=== PATIENT | female | born 1985 | race Caucasian/White ===

== ENCOUNTER 2024-02-29 07:20 | Outpatient (AMB) | payer OTHER, SELFPAY ==
[2024-02-29 07:43] VITALS: BP 120/80; PULSE 91; O2SAT 100; BMI 37.7
--- NOTE | 2024-02-29 07:43 | MHC.PC.OV ---
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 ciprofloxacin Adverse Reaction (Verified 02/29/24 07:45) hives environmental allergies Adverse Reaction (Verified 02/29/24 07:45) Sneezing Medication List - Last Reconciled 02/29/24 by Ami Osorio MD cholecalciferol (vitamin D3) 50 mcg PO DAILY levothyroxine 125 mcg PO DAILY loratadine (Claritin) 10 mg PO DAILY loteprednol etabonate 0.5% 1 drp ophthalmic-Left QID 14 days metoprolol succinate ER 25 mg PO DAILY vitamin B complex 1 tab PO DAILY Tobacco use date assessed: 02/29/24 Dental Screening Dental Screen Date: 02/29/24 Did you have a dental visit in the last 12 months?: Yes Did you have a dental problem in the last 6 months where you did not have access to dental care?: Yes Was dental information given to patient?: Patient has dentist 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 Pt moved from [place] 1 year ago. 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 1. Little interest or pleasure in doing things: not at all 2. Feeling down, depressed, or hopeless: not at all 3. Trouble falling or staying asleep, or sleeping too much: not at all 4. Feeling tired or having little energy: not at all 5. Poor appetite or overeating: not at all 6. Feeling bad about yourself - or that you are a failure or have let yourself or your family down: not at all 7. Trouble concentrating on things, such as reading the newspaper or watching television: not at all 8. Moving or speaking so slowly that other people could have noticed. Or the opposite - being so fidgety or restless that you have been moving around a lot more than usual: not at all 9. Thoughts that you would be better off or of hurting yourself in some way: not at all Total score: 0 Depression Screening Interpretation: Negative Depression Screening Done: Yes 68930 - PHQ-9 Billing: Yes Source: Developed by Drs. Isai Cornelius, Giselle Tate, Johnson Lee and colleagues, with an educational julisa from [employer]. Thrive Questionnaire Date Thrive assessed: 02/29/24 I am a: Patient What is your living situation today?: I have a steady place to live Within the past 12 months, did the food you bought not last and you didn't have the money to get more?: Never true Within the past 12 months, did you worry whether your food would run out before you got money to buy more?: Never true Do you have trouble paying for medicines?: No Do you have trouble getting transportation to medical appointments?: No Do you have trouble paying your heating and electricity bill?: No Do you have trouble taking care of your child, family member or friend?: No Do you have trouble with day-to-day activities such as bathing, preparing meals, shopping, managing finances, etc.?: No Are you currently unemployed and looking for a job?: No Are you interested in more education?: No Please select the resources that you would like help with: None Currently or been in a relationship where the following occur: No concerns reported THRIVE Score: 0 AUDIT C Alcohol Use Questionnaire (AUDIT-C) 1. How often do you have a drink containing alcohol?: Monthly or less 2. How many drinks containing alcohol do you have on a typical day when you are drinking?: 1 or 2 3. How often do you have six or more drinks on one occasion?: Never Total Score: 1 RUTH-7 AMB Questionnaire RUTH-7 Date RUTH - 7 assessed: 02/29/24 Feeling nervous, anxious, or on edge: 0 = Not at all Not being able to stop or control worryin = Not at all Worrying too much about different things: 0 = Not at all Trouble relaxin = Not at all Being so restless that it is hard to sit still: 0 = Not at all Becoming easily annoyed or irritable: 0 = Not at all Feeling afraid as if something awful might happen: 0 = Not at all Total RUTH-7 score (0-4 normal; 5-9 mild; 10-14 moderate; 15-21 severe): 0 Source: Developed by Drs. Isai Cornelius, Giselle Tate, Johnson Lee and colleagues, with an educational julisa from [employer]. Review of Systems Const All systems reviewed & are unremarkable except as noted in HPI and below Reports no additional complaints Eyes Reports no additional complaints ENT Reports no additional complaints Card Reports no additional complaints Resp Reports no additional complaints GI Reports no additional complaints Reports no additional complaints Physical exam (Primary Care) Vital Signs: Last Vital Signs Pulse 91 02/29/24 07:43 BP 142/108 H 02/29/24 07:43 Pulse Ox 100 02/29/24 07:43 Oxygen Delivery Method Room Air 02/29/24 07:43 BMI result Body Mass Index 37.7 Tobacco/Smoking Status: Tobacco use Status Tobacco use date assessed 02/29/24 02/29/24 07:53 Patient Tobacco Use Status Never used Tobacco 02/29/24 08:17 e-Cigarette/Vaping Use Never Used 02/29/24 08:17 PHQ-9: PHQ-9 Score PHQ-9: Total score 0 02/29/24 08:28 Depression Screening Interpretation: Negative Thrive Assessment: Date of Thrive Assessment Date Thrive assessed 02/29/24 02/29/24 07:53 Currently or been in a relationship where the following occur: No concerns reported Const General: no acute distress HENMT Head: Yes normal to inspection Ears: hearing grossly normal bilaterally General nose exam: Normal external nose present Face and sinus: Yes normal facial exam Mouth: Normal oral and palatal mucosa present Throat: Yes posterior oropharynx normal Eyes General: appearance normal, both eyes and all related structures Neck Neck: Yes no lymphadenopathy and Yes supple Resp Effort & Inspection: normal respiratory effort Auscultation: clear to auscultation bilaterally Cardio Rhythm: regular rhythm Heart sounds: S1 normal heart sound present and S2 normal heart sound present GI Inspection: Yes normal to inspection Palpation (GI): Soft to palpation Percussion: Yes normal to percussion Auscultation: normal bowel sounds Coding Level of Care Code New Pt Prev Care 18-39yr(99783 Diagnoses Hypothyroid E03.9 Annual physical exam Z00.00 HTN (hypertension) I10 Additional Codes PHQ-9 - 22281 - PHQ-9 Billing: Yes ([id number]) Assessment & Plan Assessment & Plan (1) Hypothyroid: Code(s): E03.9 - Hypothyroidism, unspecified Category: Medical Plan: Continue levothyroxine check blood work today including TSH (2) Annual physical exam: Code(s): Z00.00 - Encounter for general adult medical examination without abnormal findings Category: Medical Plan: Well-balanced diet regular physical activity discussed with the patient. 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 (3) HTN (hypertension): Code(s): I10 - Essential (primary) hypertension Category: Medical Plan: Continue metoprolol follow-up in 6 months Orders: Orders US thyroid Today E03.9 - Hypothyroidism, unspecified TSH reflex Free T4 Today E03.9 - Hypothyroidism, unspecified, E55.9 - Vitamin D deficiency, unspecified, I10 - Essential (primary) hypertension, Z00.00 - Encounter for general adult medical examination without abnormal findings Lipid Panel Today E03.9 - Hypothyroidism, unspecified, E55.9 - Vitamin D deficiency, unspecified, I10 - Essential (primary) hypertension, Z00.00 - Encounter for general adult medical examination without abnormal findings Comprehensive [place]. Panel Fast Today E03.9 - Hypothyroidism, unspecified, E55.9 - Vitamin D deficiency, unspecified, I10 - Essential (primary) hypertension, Z00.00 - Encounter for general adult medical examination without abnormal findings Vitamin D 25-OH Total Today E03.9 - Hypothyroidism, unspecified, E55.9 - Vitamin D deficiency, unspecified, I10 - Essential (primary) hypertension, Z00.00 - Encounter for general adult medical examination without abnormal findings Vitamin B12 and Folate Today E03.9 - Hypothyroidism, unspecified, E55.9 - Vitamin D deficiency, unspecified, I10 - Essential (primary) hypertension, Z00.00 - Encounter for general adult medical examination without abnormal findings Complete Blood Count Auto Diff Today E03.9 - Hypothyroidism, unspecified, E55.9 - Vitamin D deficiency, unspecified, I10 - Essential (primary) hypertension, Z00.00 - Encounter for general adult medical examination without abnormal findings UA w Microscopic Today E03.9 - Hypothyroidism, unspecified, E55.9 - Vitamin D deficiency, unspecified, I10 - Essential (primary) hypertension, Z00.00 - Encounter for general adult medical examination without abnormal findings Medications: New loteprednol etabonate 0.5% start 24 hours after surgery 1 drp ophthalmic-Left QID 14 days 5 grams 1RF levothyroxine 125 mcg PO DAILY 90 caps 0RF metoprolol succinate ER 25 mg PO DAILY 90 tabs 0RF loteprednol etabonate 0.5% 1 drp ophthalmic (eye) .qd 5 grams 1RF olopatadine 0.1% separate doses by at least 6-8 hours 1 drp ophthalmic (eye) BID 5 mL 1RF
== END 2024-02-29 10:37 | disposition home or self-care (01) ==
PROVIDERS: PCP Internal Medicine; Visit Provider Internal Medicine
DX: E03.9 Hypothyroidism, unspecified (principal); Z00.00 Encounter for general adult medical examination without abnormal findings; I10 Essential (primary) hypertension

== ENCOUNTER 2024-02-29 07:20 | Outpatient (REF) | payer OTHER, SELFPAY ==
[2024-02-29 10:04] LABS: MANUAL DIFF FLAG NO
[2024-02-29 10:09] LABS: Basophils Absolute Auto 0.1 X10*3/uL (0.0-0.2); Basophils Percent Auto 0.6 % (0-2); Eosinophils Absolute Auto 0.2 X10*3/uL (0.0-0.4); Hematocrit 40.1 % (37.0-47.0); Hemoglobin 13.2 g/dl (12.0-16.0); Imm Gran Abs Auto 0.04 X10*3/uL (0.00-0.03); Imm Gran Pct Auto 0.5 % (0.0-0.4); Lymphocytes Absolute Auto 1.4 X10*3/uL (1.2-4.9); Lymphocytes Percent Auto 17.5 % (20-40); Mean Corpuscular HGB Conc 32.9 g/dl (31.0-35.0); Mean Corpuscular Volume 85.1 fL (80.0-98.0); Mean Platelet Volume 10.4 fL (9.4-12.3); Monocytes Absolute Auto 0.4 X10*3/uL (0.1-1.2); Monocytes Percent Auto 5.3 % (2-11); Neutrophils Absolute Auto 5.9 x10*3/uL (2.0-8.3); Neutrophils Percent Auto 74.1 % (45-73); Platelet Count 341 X10*3/uL (160-400); Red Blood Count 4.71 X10*6/uL (4.20-5.50); Red Cell Distribution Width 13.5 % (11.0-16.0); White Blood Count 7.9 X10*3/uL (4.8-10.8)
[2024-02-29 10:15] LABS: Appearance Urine Clear; Color Urine Yellow; Glucose Urine UA Negative (Negative); Leukocyte Esterase Urine Negative (Negative); Nitrite Urine Negative (Negative); Specific Gravity - Urine <= 1.005 (1.005-1.025); Urine Blood Negative (Negative); Urine Ketones Negative (Negative); Urine Protein Negative (Neg-Trace)
[2024-02-29 10:23] LABS: Bacteria Urine None Seen (None Seen); Hyaline Casts Urine 0-2 /LPF (0-2); RBC Urine 0-2 /HPF (0-2); Squamous Epithelial Cell Urine 0-2 /HPF (0-2); WBC Urine 0-5 /HPF (0-5)
[2024-02-29 11:07] LABS: Albumin Level 4.2 g/dL (3.5-5.0); Alkaline Phosphatase 64 U/L (39-117); Anion Gap 12 (12-20); Aspartate Amino Transferase 29 U/L (5-31); Bilirubin Total 0.4 mg/dL (0.0-1.0); Blood Urea Nitrogen 12 mg/dL (9-16); Calcium 9.2 mg/dL (8.4-10.2); Carbon Dioxide 28 mmol/L (22-29); Chloride 105 mmol/L (96-108); Cholesterol 161 mg/dL (<200); Estimated Glomerular Filt Rate > 60; Glucose Fasting 96 mg/dL (60-99); HDL Cholesterol 42 mg/dL (>40); LDL Cholesterol Calculated 102 mg/dL (<100); Potassium 4.6 mmol/L (3.3-5.1); Sodium 140 mmol/L (135-145); Total Protein 7.6 g/dL (6.5-8.0); Triglycerides 88 mg/dL (<150)
[2024-02-29 11:12] LABS: Folate 8.1 ng/mL (> or = 4.0); Vitamin B12 832 pg/mL (200-900)
[2024-02-29 11:14] LABS: TSH reflex Free T4 3.44 uIU/mL (0.32-4.0); Vitamin D 25-OH Total 65.5 ng/mL (>30)
[2024-02-29 11:27] LABS: Alanine Aminotransferase 30 U/L (0-31)
== END 2024-02-29 07:21 | disposition home or self-care (01) ==
LOC: HO.HMGCLDS 07:20
PROVIDERS: PCP Internal Medicine; Visit Provider Internal Medicine
DX: Z00.00 Encounter for general adult medical examination without abnormal findings (principal); I10 Essential (primary) hypertension; E03.9 Hypothyroidism, unspecified; E55.9 Vitamin D deficiency, unspecified
CPT/HCPCS: 36415; 80053; 80061; 81001; 82306; 82607; 82746; 84443; 85025; 96127

== ENCOUNTER 2024-03-25 15:22 | Outpatient (REF) | payer OTHER, SELFPAY ==
--- NOTE | ~2024-03-25 | US_ITS ---
EXAMINATION: US THYROID CLINICAL INFORMATION: Hypothyroidism, unspecified. COMPARISON: None available. TECHNIQUE: Linear transducer grayscale and color Doppler examination with attention to the region of the thyroid. FINDINGS: SIZE: Measurements of the thyroid lobes and nodules are given in sagittal, anteroposterior and transverse dimensions respectively. Right Thyroid Lobe: 5.6 x 1.8 x 2.2 cm, volume 11.6 mL. Parenchyma: The gland echotexture is heterogeneous. Thyroid vascularity is slightly increased. Left Thyroid Lobe: 4.8 x 2.1 x 2.0 cm, volume 10.6 mL. Parenchyma: The gland echotexture is heterogeneous. Thyroid vascularity is slightly increased. Isthmus: 0.5 cm in maximum AP dimension. No focal thyroid nodule is seen. NODES: There is a solitary prominent lymph node level 2 left neck measuring 3.3 x 1.1 x 2.0 cm US/US thyroid IMPRESSION: Unremarkable Panorex ultrasound with no nodules visualized. Abnormal dumbbell shaped left neck level 2 lymph node. No increased vascularity. Recommend follow-up lymph node in 6-12 months ACR TI-RADS RECOMMENDATION REFERENCE: Ultrasound-guided fine-needle aspiration, followup ultrasound, no further follow up. * TR1 (0 point) and TR2 (2 points): No FNA or follow up. * TR3 (3 points): FNA if more than or equal to 2.5 cm in maximum dimension, followup ultrasound in 1, 3 and 5 years if 1.5 to 2.4 cm in maximum dimension. * TR4 (4-6 points): FNA if more than or equal to 1.5 cm in maximum dimension, followup ultrasound in 1, 2, 3 and 5 years if 1 to 1.4 cm in maximum dimension. * TR5 (more than or equal to 7 points): FNA if more than or equal to 1 cm in maximum dimension, followup ultrasound every year for 5 years if 0.5 to 0.9 cm in maximum dimension. * TR3, TR4 or TR5 nodules that are below the size threshold for followup receive no follow up. Electronically signed by: Clarence May MD 04/11/2024 05:49 PM [facility]
== END 2024-03-25 15:23 | disposition home or self-care (01) ==
LOC: HO.HMGCX 15:22
PROVIDERS: PCP Internal Medicine; Visit Provider Internal Medicine
DX: E03.9 Hypothyroidism, unspecified (principal)
CPT/HCPCS: 76536

== ENCOUNTER → 2024-03-25 15:24 | Outpatient (BNV) | payer OTHER, SELFPAY | PROVIDERS: PCP Internal Medicine; Visit Provider Radiology Diagnostic Radiology | DX: R59.9 Enlarged lymph nodes, unspecified (principal) | CPT/HCPCS: 76536 ==

== ENCOUNTER 2024-10-08 15:31 | Outpatient (REF) | payer OTHER, SELFPAY ==
--- NOTE | ~2024-10-08 | US_ITS ---
EXAMINATION: US THYROID CLINICAL INFORMATION: Cervical lymphadenopathy, follow-up abnormal left level 2 lymph node from thyroid ultrasound 03/25/2024.. COMPARISON: Thyroid ultrasound 03/25/2024. TECHNIQUE: Linear transducer moore-scale and color Doppler examination with attention to the cervical lymph nodes. FINDINGS: There is a slightly smaller left level 2 lymph node measuring 3.3 x 1.0 x 1.4 cm, previously measuring 3.3 x 1.1 x 2.0 cm. It again demonstrates a slitlike fatty hilum, lobular mildly thickened cortex, but normal vascularity. There remains indeterminate. No additional abnormal lymph nodes are noted on either side. US/US soft tiss head and/or neck IMPRESSION: Slightly smaller left level 2 lymph node measuring 3.3 x 1.0 x 1.4 cm as detailed. This remains indeterminate although stability over time suggests reactive etiology. Electronically signed by: Herber Lanier MD 10/08/2024 03:57 PM EDT
--- OUTSIDE RECORDS SUMMARY | 2024-10-08 18:20 | XMS_ITS | Clinical Summary ---
Author Organization [facility] [employer] [facility] lin Address [address] [place] [address] Care Team Providers Care Acupressurist Name Role Phone Pcp, No Primary Care Provider [phone] Social History Tobacco Use Types Packs/Day Years Used Date Smoking Tobacco: Never Assessed Comments Unknown Sex and Gender Information Value Date Recorded Sex Assigned at Not on file Legal Sex Female 8:20 PM EDT Gender Identity Not on file Sexual Orientation Not on file Plan of Treatment Health Maintenance Due Date Last Done Comments Depression: Screening Annual ly using PHQ-2/9 in Adults 18 yrs or above (or HM Modifier)([facility]) 2002 Hepatitis C Virus Infection in Adolescents and Adults: Screening (or Modifier) ([facility]) 2002 SDFL Screening Reminder: Norma infante for all adults ([facility]) 2002 Tobacco Smoking Cessation: i n Adults excluding Women: Behavioral and Pharmacotherapy Interventions ([facility]) 2002 DTaP/Tdap/Td Vaccines ([facility]) (1 - Tdap) 10/16/2003 Cervical Cancer Screenin 1-65 yrs of age (or Modifier) 2005 Cervical Cancer Screening: P ap every 3 yrs pts age 21-65 2005 Cervical Cancer: Pap Screeni ng with Modifier timing ([facility]) 2005 Cervical Cancer: hrHPV alone or with cotesting Pap for Pts 30-65yrs screening every 5yrs ([facility]) 2005 COVID-19 Vaccine Screening: Initial Series and Booster Status ([facility]) ( - 2023- season) 2023 Flu Vaccination: Yearly for ages 18mos through 64 years (or Modifier)([facility]) 11/14/2024 Zoster/Shingles Vaccine Seri es Screening: Adults aged 18+ yrs (or HM Modifiers)([facility]) (1 of 2) 2034 Pneumococcal Vaccination Scr eening: Pts 0-19 & 19-49 yrs of age ([facility]) Aged Out No longer eligible based on patient's age to complete this topic Medical Devices Not on file Insurance Care Teams Acupressurist Relationship Specialty Start Date End Date Pcp, Cata PCP - General Family Medicine 01/01/21
== END 2024-10-08 15:32 | disposition home or self-care (01) ==
LOC: HO.HMGCX 15:31
PROVIDERS: PCP Internal Medicine; Visit Provider Internal Medicine
DX: R59.0 Localized enlarged lymph nodes (principal)
CPT/HCPCS: 76536

== ENCOUNTER → 2024-10-08 15:32 | Outpatient (BNV) | payer OTHER, SELFPAY | PROVIDERS: PCP Internal Medicine; Visit Provider Radiology Diagnostic Radiology | DX: R59.9 Enlarged lymph nodes, unspecified (principal) | CPT/HCPCS: 76536 ==

== ENCOUNTER 2025-02-05 11:11 | Outpatient (AMB) | payer OTHER, SELFPAY ==
[2025-02-05 11:13] VITALS: BP 128/84; PULSE 81; RESP 18; TEMP 36.7; O2SAT 9; BMI 36.0
--- NOTE | 2025-02-05 11:13 | A.OFFPC_ITS ---
Vital Signs 02/05/25 11:13 Height 5 ft 9 in Weight 244 lb BMI 36.0 BP 128/84 Blood Pressure Location Lt brachial Position Sitting Respiration 18 Pulse 81 Pulse Source Pulse Oximeter Temp 98.1 F Temp Source Oral Pulse Oximetry (%) 9 L Oxygen Delivery Method Room Air Intake Visit Reasons: Meds review Intake Note: Pt is here today for a follow up visit. Allergies ciprofloxacin Adverse Reaction (Verified 02/05/25 11:24) hives environmental allergies Adverse Reaction (Verified 02/05/25 11:24) Sneezing Tobacco use date assessed: 02/05/25 Dental Screening Dental Screen Date: 02/05/25 Did you have a dental visit in the last 12 months?: Yes Did you have a dental problem in the last 6 months where you did not have access to dental care?: No Was dental information given to patient?: Patient has dentist HPI Meds review HPI Details Patient presents for the follow-up on hypothyroidism and hypertension controlled on current medications [facility] Medical History (Updated 02/05/25 @ 15:04 by Ami Osorio MD) Cervical lymphadenopathy Normal pelvic exam Vitamin B 12 deficiency Vitamin D deficiency Hypothyroid HTN (hypertension) Surgical History (Updated 02/05/25 @ 11:27 by Lin Mccormack [facility]) Hx of cholecystectomy Family History (Updated 02/29/24 @ 08:16 by Ami Osorio MD) Father HTN (hypertension) Leukemia Mother Breast CA Social History (Updated 02/29/24 @ 08:17 by Ami Osorio MD) 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 1. Little interest or pleasure in doing things: not at all 2. Feeling down, depressed, or hopeless: not at all 3. Trouble falling or staying asleep, or sleeping too much: not at all 4. Feeling tired or having little energy: not at all 5. Poor appetite or overeating: not at all 6. Feeling bad about yourself - or that you are a failure or have let yourself or your family down: not at all 7. Trouble concentrating on things, such as reading the newspaper or watching television: not at all 8. Moving or speaking so slowly that other people could have noticed. Or the opposite - being so fidgety or restless that you have been moving around a lot more than usual: not at all 9. Thoughts that you would be better off or of hurting yourself in some way: not at all Total score: 0 Source: Developed by Drs. Isai Cornelius, Giselle Tate, Johnson Lee and colleagues, with an educational julisa from [employer] Thrive Questionnaire Date Thrive assessed: 01/29/25 I am a: Patient What is your living situation today?: I have a steady place to live Within the past 12 months, did the food you bought not last and you didn't have the money to get more?: Never true Within the past 12 months, did you worry whether your food would run out before you got money to buy more?: Never true Do you have trouble paying for medicines?: No Do you have trouble getting transportation to medical appointments?: No Do you have trouble paying your heating and electricity bill?: No Do you have trouble taking care of your child, family member or friend?: No Do you have trouble with day-to-day activities such as bathing, preparing meals, shopping, managing finances, etc.?: No Are you currently unemployed and looking for a job?: No Are you interested in more education?: No Please select the resources that you would like help with: None Currently or been in a relationship where the following occur: No concerns reported THRIVE Score: 0 AUDIT C Alcohol Use Questionnaire (AUDIT-C) 1. How often do you have a drink containing alcohol?: Monthly or less 2. How many drinks containing alcohol do you have on a typical day when you are drinking?: 1 or 2 3. How often do you have six or more drinks on one occasion?: Never Total Score: 1 RUTH-7 AMB Questionnaire RUTH-7 Date RUTH - 7 assessed: 02/29/24 Feeling nervous, anxious, or on edge: 0 = Not at all Not being able to stop or control worryin = Not at all Worrying too much about different things: 0 = Not at all Trouble relaxin = Not at all Being so restless that it is hard to sit still: 0 = Not at all Becoming easily annoyed or irritable: 0 = Not at all Feeling afraid as if something awful might happen: 0 = Not at all Total RUTH-7 score (0-4 normal; 5-9 mild; 10-14 moderate; 15-21 severe): 0 Source: Developed by Drs. Isai Cornelius, Giselle Tate, Johnson Lee and colleagues, with an educational julisa from [employer] Review of Systems Const All systems reviewed & are unremarkable except as noted in HPI and below ENT Reports no additional complaints Card Reports no additional complaints Resp Reports no additional complaints GI Reports no additional complaints Reports no additional complaints Physical exam (Primary Care) Vital Signs: Last Vital Signs Temp 98.1 F 02/05/25 11:13 Pulse 81 02/05/25 11:13 Resp 18 02/05/25 11:13 BP 128/84 02/05/25 11:13 Pulse Ox 9 L 02/05/25 11:13 Oxygen Delivery Method Room Air 02/05/25 11:13 BMI result Body Mass Index 36.0 Tobacco/Smoking Status: Tobacco use Status Tobacco use date assessed 02/05/25 02/05/25 11:28 Patient Tobacco Use Status Never used Tobacco 02/05/25 11:28 e-Cigarette/Vaping Use Never Used 02/05/25 11:14 PHQ-9: PHQ-9 Score PHQ-9: Total score 0 02/05/25 11:14 Thrive Assessment: Date of Thrive Assessment Date Thrive assessed 01/29/25 02/05/25 11:14 Currently or been in a relationship where the following occur: No concerns reported Const General: no acute distress HENMT Ears: hearing grossly normal bilaterally Neck Neck: Yes supple Resp Effort & Inspection: normal respiratory effort Auscultation: clear to auscultation bilaterally Cardio Rhythm: regular rhythm Heart sounds: S1 normal heart sound present and S2 normal heart sound present Coding Level of Care Code Est Pt Level 4 (68843) Diagnoses HTN (hypertension) I10 Hypothyroid E03.9 Assessment & Plan Assessment & Plan (1) HTN (hypertension): Code(s): I10 - Essential (primary) hypertension Category: Medical Plan: Continue metoprolol (2) Hypothyroid: Code(s): E03.9 - Hypothyroidism, unspecified Category: Medical Plan: Continue levothyroxine patient will return for fasting blood work, she will follow-up for physical next year Orders: Orders Lipid Panel Today E03.9 - Hypothyroidism, unspecified, E53.8 - Deficiency of other specified B group vitamins, E55.9 - Vitamin D deficiency, unspecified, I10 - Essential (primary) hypertension Vitamin D 25-OH Total Today E03.9 - Hypothyroidism, unspecified, E53.8 - Deficiency of other specified B group vitamins, E55.9 - Vitamin D deficiency, unspecified, I10 - Essential (primary) hypertension Comprehensive [place]. Panel Fast Today E03.9 - Hypothyroidism, unspecified, E53.8 - Deficiency of other specified B group vitamins, E55.9 - Vitamin D deficiency, unspecified, I10 - Essential (primary) hypertension Vitamin B12 and Folate Today E03.9 - Hypothyroidism, unspecified, E53.8 - Deficiency of other specified B group vitamins, E55.9 - Vitamin D deficiency, unspecified, I10 - Essential (primary) hypertension Complete Blood Count Auto Diff Today E03.9 - Hypothyroidism, unspecified, E53.8 - Deficiency of other specified B group vitamins, E55.9 - Vitamin D deficiency, unspecified, I10 - Essential (primary) hypertension TSH reflex Free T4 Today E03.9 - Hypothyroidism, unspecified, E53.8 - Deficiency of other specified B group vitamins, E55.9 - Vitamin D deficiency, unspecified, I10 - Essential (primary) hypertension UA w Microscopic Today E03.9 - Hypothyroidism, unspecified, E53.8 - Deficiency of other specified B group vitamins, E55.9 - Vitamin D deficiency, unspecified, I10 - Essential (primary) hypertension Medications: New triamcinolone acetonide 0.5% 1 appl topical DAILY 15 grams 1RF Refilled levothyroxine 125 mcg PO DAILY 90 caps 3RF
--- OUTSIDE RECORDS SUMMARY | 2025-02-05 14:07 | XMS_ITS | Clinical Summary ---
Author Organization [facility] [employer] [facility] Address [address] [place] [address] Care Team Providers Care Archery Equipment Hay Sorter Name Role Phone Pcp, No Primary Care Provider [phone] Social History Tobacco Use Types Packs/Day Years [...] Adults 18 yrs or above (or HM Modifier)([facility]) 2002 Hepatitis C Virus Infection in Adolescents and Adults: Screening (or Modifier) ([facility]) 2002 SDTX Screening Reminder: Norma infante for all adults ([facility]) 2002 Tobacco Smoking Cessation: i n Adults excluding Women: Behavioral and Pharmacotherapy Interventions ([facility]) 2002 DTaP/Tdap/Td Vaccines ([facility]) (1 - Tdap) 10/16/2003 Cervical Cancer Screenin 1-65 yrs of age (or Modifier) 2005 Cervical Cancer Screening: P ap every 3 yrs pts age 21-65 2005 Cervical Cancer: Pap Screeni ng with Modifier timing ([facility]) 2005 Cervical Cancer: hrHPV alone or with cotesting Pap for Pts 30-65yrs screening every 5yrs ([facility]) 2005 Flu Vaccination: Yearly for ages 18mos through 64 years (or Modifier)([facility]) 11/14/2024 COVID-19 Vaccine Screening: Initial Series and Booster Status ([facility]) (2023- season) 2024 Zoster/Shingles Vaccine Seri es Screening: Adults aged 18+ yrs (or HM Modifiers)([facility]) (1 of 2) 2034 Pneumococcal Vaccination Scr eening: Pts 0-19 & 19-49 yrs of age ([facility]) Aged Out No longer eligible based on patient's age to complete this topic Medical Devices Not on file Insurance Care Teams Archery Equipment Hay Sorter Relationship Specialty Start Date End Date Pcp, Cata PCP - General Family Medicine 01/01/21
== END 2025-02-05 11:59 | disposition home or self-care (01) ==
LOC: HO.HMCC 11:12
PROVIDERS: PCP Internal Medicine; Visit Provider Internal Medicine
DX: I10 Essential (primary) hypertension (principal); E03.9 Hypothyroidism, unspecified

== ENCOUNTER 2025-03-16 07:03 | Outpatient (REF) | payer OTHER, SELFPAY ==
--- OUTSIDE RECORDS SUMMARY | 2025-03-16 07:07 | XMS_ITS | Clinical Summary ---
Author Organization [employer] [facility] Address [address] [place] [address] Care Team Providers Care Die Mounter Name Role Phone Pcp, No Primary Care Provider [phone] Social History Tobacco Use Types Packs/Day Years Used Date Smoking Tobacco: Never Assessed Comments Unknown Sex and Gender Information Value Date Recorded Sex Assigned at Not on file Legal Sex Female 8:20 PM EDT Gender Identity Not on file Sexual Orientation Not on file Plan of Treatment Not on file Medical Devices Not on file Insurance ANTHEM Care Teams Die Mounter Relationship Specialty Start Date End Date Pcp, Cata PCP - General Family Medicine 01/01/21
[2025-03-16 07:17] LABS: MANUAL DIFF FLAG NO
[2025-03-16 08:04] LABS: Appearance Urine Clear; Glucose Urine UA Negative (Negative); PH 5.5 (5.0-9.0); Specific Gravity - Urine 1.020 (1.005-1.025); UMIC TRIGGER UA YES
[2025-03-16 08:16] LABS: Hematocrit 42.1 % (37.0-47.0); Hemoglobin 13.2 g/dl (12.0-16.0); Imm Gran Abs Auto 0.02 X10*3/uL (0.00-0.03); Imm Gran Pct Auto 0.3 % (0.0-0.4); Lymphocytes Absolute Auto 1.8 X10*3/uL (1.2-4.9); Mean Corpuscular HGB Conc 31.4 g/dl (31.0-35.0); Mean Corpuscular Hemoglobin 27.2 pg (27.0-33.0); Mean Corpuscular Volume 86.6 fL (80.0-98.0); NRBC Abs Auto 0.000 X10*3/uL (0.0-0.012); NRBC Pct Auto 0.0 /100WBC (0.0-0.2); Platelet Count 294 X10*3/uL (160-400); Red Blood Count 4.86 X10*6/uL (4.20-5.50); White Blood Count 6.4 X10*3/uL (4.8-10.8)
[2025-03-16 08:43] LABS: Alanine Aminotransferase 30 U/L (0-31); Albumin Level 4.5 g/dL (3.5-5.0); Alkaline Phosphatase 66 U/L (39-117); Anion Gap 13 (12-20); Aspartate Amino Transferase 28 U/L (5-31); Blood Urea Nitrogen 12 mg/dL (9-16); Calcium 9.6 mg/dL (8.4-10.2); Carbon Dioxide 27 mmol/L (22-29); Chloride 110 mmol/L (96-108); Cholesterol 159 mg/dL (<200); Estimated Glomerular Filt Rate > 60; HDL Cholesterol 37 mg/dL (>40); Potassium 5.0 mmol/L (3.3-5.1); Sodium 145 mmol/L (135-145); Total Protein 7.5 g/dL (6.5-8.0); Triglycerides 137 mg/dL (<150)
[2025-03-16 08:56] LABS: Folate 6.7 ng/mL (> or = 4.0); Vitamin B12 948 pg/mL (200-900)
[2025-03-16 10:19] LABS: Free T4 (Free Thyroxine) 1.00 ng/dL (0.71-1.85)
== END 2025-03-16 07:04 | disposition home or self-care (01) ==
LOC: HO.LAB 07:03
PROVIDERS: PCP Internal Medicine; Visit Provider Internal Medicine
DX: I10 Essential (primary) hypertension (principal); E03.9 Hypothyroidism, unspecified; E55.9 Vitamin D deficiency, unspecified; E53.8 Deficiency of other specified B group vitamins
CPT/HCPCS: 36415; 80053; 80061; 81001; 82306; 82607; 82746; 84439; 84443; 85025

== ENCOUNTER 2025-03-18 12:41 | Outpatient (AMB) | payer OTHER, SELFPAY ==
--- NOTE | 2025-03-18 12:52 | A.OFFPC_ITS ---
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 Required: No Accompanied by: Self / Same As Patient Allergies ciprofloxacin Adverse Reaction (Verified 03/18/25 12:57) hives environmental allergies Adverse Reaction (Verified 03/18/25 12:57) Sneezing Medication List - Last Reconciled 03/18/25 by Ami Osorio MD cholecalciferol (vitamin D3) 50 mcg PO DAILY fluconazole 150 mg PO Q3D 2 doses levothyroxine 125 mcg PO DAILY loratadine (Claritin) 10 mg PO DAILY loteprednol etabonate 0.5% 1 drp ophthalmic (eye) .qd metoprolol succinate ER 25 mg PO DAILY olopatadine 0.1% 1 drp ophthalmic (eye) BID triamcinolone acetonide 0.5% 1 appl topical DAILY vitamin B complex 1 tab PO DAILY Tobacco use date assessed: 03/18/25 Dental Screening Dental Screen Date: 03/18/25 Did you have a dental visit in the last 12 months?: Yes Did you have a dental problem in the last 6 months where you did not have access to dental care?: No Was dental information given to patient?: Patient has dentist HPI PE HPI Details Patient presents for physical PFSH Medical History Cervical lymphadenopathy Normal pelvic exam Vitamin B 12 deficiency Vitamin D deficiency Hypothyroid HTN (hypertension) Surgical History Hx of cholecystectomy Family History Father HTN (hypertension) Leukemia Mother Breast CA Social History 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 1. Little interest or pleasure in doing things: not at all 2. Feeling down, depressed, or hopeless: not at all 3. Trouble falling or staying asleep, or sleeping too much: not at all 4. Feeling tired or having little energy: not at all 5. Poor appetite or overeating: not at all 6. Feeling bad about yourself - or that you are a failure or have let yourself or your family down: not at all 7. Trouble concentrating on things, such as reading the newspaper or watching television: not at all 8. Moving or speaking so slowly that other people could have noticed. Or the opposite - being so fidgety or restless that you have been moving around a lot more than usual: not at all 9. Thoughts that you would be better off or of hurting yourself in some way: not at all Total score: 0 Depression Screening Interpretation: Negative Depression Screening Done: Yes 44765 - PHQ-9 Billing: Yes Source: Developed by Drs. Isai Cornelius, Giselle Tate, Johnson Lee and colleagues, with an educational julisa from [employer]. Thrive Questionnaire Date Thrive assessed: 01/29/25 I am a: Patient What is your living situation today?: I have a steady place to live Within the past 12 months, did the food you bought not last and you didn't have the money to get more?: Never true Within the past 12 months, did you worry whether your food would run out before you got money to buy more?: Never true Do you have trouble paying for medicines?: No Do you have trouble getting transportation to medical appointments?: No Do you have trouble paying your heating and electricity bill?: No Do you have trouble taking care of your child, family member or friend?: No Do you have trouble with day-to-day activities such as bathing, preparing meals, shopping, managing finances, etc.?: No Are you currently unemployed and looking for a job?: No Are you interested in more education?: No Please select the resources that you would like help with: None Currently or been in a relationship where the following occur: No concerns reported THRIVE Score: 0 RUTH-7 AMB Questionnaire RUTH-7 Date RUTH - 7 assessed: 03/18/25 Feeling nervous, anxious, or on edge: 0 = Not at all Not being able to stop or control worryin = Not at all Worrying too much about different things: 0 = Not at all Trouble relaxin = Not at all Being so restless that it is hard to sit still: 0 = Not at all Becoming easily annoyed or irritable: 0 = Not at all Feeling afraid as if something awful might happen: 0 = Not at all Total RUTH-7 score (0-4 normal; 5-9 mild; 10-14 moderate; 15-21 severe): 0 Source: Developed by Drs. Isai Cornelius, Giselle Tate, Johnson Lee and colleagues, with an educational julisa from [employer]. RUTH-7 Assessment Billing RUTH-7 Assessment Tool: RUTH-7 Assessment 96940 Review of Systems Const All systems reviewed & are unremarkable except as noted in HPI and below Eyes Reports no additional complaints ENT Reports no additional complaints Card Reports no additional complaints Resp Reports no additional complaints GI Reports no additional complaints Reports no additional complaints Physical exam (Primary Care) Vital Signs: Last Vital Signs Pulse 94 03/18/25 12:53 Resp 16 03/18/25 12:53 BP 124/90 H 03/18/25 12:53 Pulse Ox 99 03/18/25 12:53 Oxygen Delivery Method Room Air 03/18/25 12:53 BMI result Body Mass Index 35.9 Tobacco/Smoking Status: Tobacco use Status Tobacco use date assessed 03/18/25 03/18/25 12:59 Patient Tobacco Use Status Never used Tobacco 03/18/25 12:59 e-Cigarette/Vaping Use Never Used 03/18/25 12:59 PHQ-9: PHQ-9 Score PHQ-9: Total score 0 03/18/25 12:59 Depression Screening Interpretation: Negative Thrive Assessment: Date of Thrive Assessment Date Thrive assessed 01/29/25 03/18/25 12:59 Currently or been in a relationship where the following occur: No concerns reported Const General: no acute distress HENMT Head: Yes normal to inspection Face and sinus: Yes normal facial exam Throat: Yes posterior oropharynx normal Eyes General: appearance normal, both eyes and all related structures Neck Neck: Yes no lymphadenopathy and Yes supple Chest Breast/axilla inspection: normal inspection of the breasts Breast/axilla palpation: normal palpation of the breasts and no axillary lymphadenopathy Resp Effort & Inspection: normal respiratory effort Auscultation: clear to auscultation bilaterally Cardio Rhythm: regular rhythm Heart sounds: S1 normal heart sound present and S2 normal heart sound present GI Inspection: Yes normal to inspection Palpation (GI): Soft to palpation Percussion: Yes normal to percussion Auscultation: normal bowel sounds External Female Exam: normal external appearance Speculum Exam - Vagina: normal appearance of the vagina Speculum Exam - Cervix: normal appearance of the cervix Bimanual exam- vagina & uterus: normal bimanual exam Coding Level of Care Code Est Pt Prev Care 40-64y(73710) Diagnoses Hypothyroid E03.9 HTN (hypertension) I10 Annual physical exam Z00.00 Additional Codes RUTH-7 Assessment Billing - RUTH-7 Assessment Tool: RUTH-7 Assessment 39213 ([id number]) PHQ-9 - 18912 - PHQ-9 Billing: Yes ([id number]) Assessment & Plan Assessment & Plan (1) Hypothyroid: Code(s): E03.9 - Hypothyroidism, unspecified Category: Medical Plan: Continue levothyroxine repeat TSH and free T4 level in 2 months (2) HTN (hypertension): Code(s): I10 - Essential (primary) hypertension Category: Medical Plan: Continue Metoprolol (3) Annual physical exam: Code(s): Z00.00 - Encounter for general adult medical examination without abnormal findings Category: Medical Plan: Well-balanced diet regular physical activity and weight loss discussed with the patient. Pap smear was done today and patient is referred for mammogram. She will return in 1 year Orders: Orders TSH reflex Free T4 2 Months E03.9 - Hypothyroidism, unspecified Triiodothyronine T3 Free 2 Months E03.9 - Hypothyroidism, unspecified Lipid Panel 1 Year I10 - Essential (primary) hypertension, Z00.00 - Encounter for general adult medical examination without abnormal findings UA w Microscopic 1 Year I10 - Essential (primary) hypertension, Z00.00 - Encounter for general adult medical examination without abnormal findings Free T4 (Free Thyroxine) 2 Months E03.9 - Hypothyroidism, unspecified MM tomosynthesis screening BI Today Z12.31 - Encounter for screening mammogram for malignant neoplasm of breast Comprehensive [place]. Panel Fast 1 Year I10 - Essential (primary) hypertension, Z00.00 - Encounter for general adult medical examination without abnormal findings Complete Blood Count Auto Diff 1 Year I10 - Essential (primary) hypertension, Z00.00 - Encounter for general adult medical examination without abnormal findings TSH reflex Free T4 1 Year I10 - Essential (primary) hypertension, Z00.00 - Encounter for general adult medical examination without abnormal findings Pap Smear Today Z00.00 - Encounter for general adult medical examination without abnormal findings Medications: New fluconazole 150 mg PO Q3D 2 tabs 0RF 2 doses
[2025-03-18 12:53] VITALS: BP 124/90; PULSE 94; RESP 16; O2SAT 99; BMI 35.9
--- OUTSIDE RECORDS SUMMARY | 2025-03-18 14:55 | XMS_ITS | Clinical Summary ---
Author Organization [employer] [facility] Address [address] [place] [address] Care Team Providers Care Biology Instructor Name Role Phone Pcp, No Primary Care Provider [phone] Social History Tobacco Use Types Packs/Day Years Used Date Smoking Tobacco: Never Assessed Comments Unknown Sex and Gender Information Value Date Recorded Sex Assigned at Not on file Legal Sex Female 8:20 PM EDT Gender Identity Not on file Sexual Orientation Not on file Plan of Treatment Not on file Medical Devices Not on file Insurance [employer]M Care Teams Biology Instructor Relationship Specialty Start Date End Date Pcp, Cata PCP - General Family Medicine 01/01/21
== END 2025-03-18 14:11 | disposition home or self-care (01) ==
LOC: HO.HMCC 12:42
PROVIDERS: PCP Internal Medicine; Visit Provider Internal Medicine
DX: Z00.00 Encounter for general adult medical examination without abnormal findings (principal); E03.9 Hypothyroidism, unspecified; I10 Essential (primary) hypertension

== ENCOUNTER 2025-03-18 12:41 | Outpatient (REF) | payer OTHER, SELFPAY | END 2025-03-18 12:42 | disposition home or self-care (01) | LOC: HO.LNP 12:41 | PROVIDERS: PCP Internal Medicine; Visit Provider Internal Medicine | DX: Z00.00 Encounter for general adult medical examination without abnormal findings (principal); I10 Essential (primary) hypertension | CPT/HCPCS: 87626; 88175; 96127 ==